=== PATIENT | male | born 2000 | race Caucasian/White ===

== ENCOUNTER 2023-11-22 08:49 | Emergency (ER) | payer BC ==
[2023-11-22 09:44] VITALS: BP 160/111; PULSE 77
[2023-11-22 09:48] LABS: BASOPHILS ABSOLUTE AUTO 0.02 K/uL (0.00-0.20); BASOPHILS PERCENT AUTO 0.2 % (0.0-2.0); EOSINOPHILS ABSOLUTE AUTO 0.04 K/uL (0.00-0.50); EOSINOPHILS PERCENT AUTO 0.3 % (0.0-5.0); HEMATOCRIT 47.8 % (39.0-49.0); HEMOGLOBIN 16.4 g/dL (13.1-16.8); LYMPHOCYTES ABSOLUTE AUTO 1.25 K/uL (0.50-3.50); MEAN CORPUSCULAR HEMOGLOBIN 31.7 pg (28.2-33.3); MEAN CORPUSCULAR HGB CONC 34.3 g/dL (31.7-36.0); MEAN CORPUSCULAR VOLUME 92.5 fL (84.0-98.0); MONOCYTES ABSOLUTE AUTO 1.26 K/uL (0.00-1.00); MONOCYTES PERCENT AUTO 10.1 % (2.0-14.0); NEUTROPHILS ABSOLUTE AUTO 9.92 K/uL (1.40-7.00); NEUTROPHILS PERCENT AUTO 79.4 % (45.0-80.0); PLATELET COUNT,PLT 346 K/uL (150-350); RED BLOOD CELL COUNT 5.17 M/uL (4.33-5.41); WHITE BLOOD CELL COUNT,WBC 12.5 K/uL (4.0-10.2)
[2023-11-22 09:56] LABS: ALBUMIN 3.9 g/dL (3.4-5.0); ANION GAP 8.9 meq/L (7-15); BILIRUBIN TOTAL 0.6 mg/dL (0.2-1.0); CALCIUM 9.1 mg/dL (8.5-10.1); CARBON DIOXIDE,CO2 28.1 mmol/L (21.0-32.0); CREATININE 1.89 mg/dL (0.51-1.17); EST CRCL DRUG DOSING (CG) 59.5 mL/min; POTASSIUM,K 4.7 mmol/L (3.5-5.1); PROTEIN TOTAL,TP 7.8 g/dL (6.4-8.2)
[2023-11-22] MEDS: Ondansetron 4 MG/2 ML SDV IVPUSH ONE (09:57)
[2023-11-22] MEDS: Lactated Ringers 1,000 ML IV ONE (09:58)
[2023-11-22] MEDS ORDERED: Naloxone 0.4 MG/ML SDV IVPUSH PRN (10:02)
[2023-11-22] MEDS ORDERED: Sodium Chloride 0.9% 10 ML Syringe FLUSH PRN (10:08)
[2023-11-22] MEDS: fentaNYL 50 MCG/ML SDV IVPUSH ONE (10:36)
[2023-11-22] MEDS: Sodium Chloride 0.9% 1,000 ML IV ONE (11:36)
== END 2023-11-22 12:25 | disposition home or self-care (01) ==
LOC: LL.ED 08:49
DX: K59.00 Constipation, unspecified (principal); N17.9 Acute kidney failure, unspecified; Z88.8 Allergy status to other drugs, medicaments and biological substances; Z79.899 Other long term (current) drug therapy
CPT/HCPCS: 36415; 74019; 80053; 85025; 96361; 96374; 96375; 99284-25; J2405; J3010; J7030; J7120